=== PATIENT | male | born 1940 | race Caucasian/White ===

== ENCOUNTER 2022-12-19 19:46 | Observation (INO) | payer MEDICARE, SELFPAY ==
[2022-12-19] VITALS (28 sets, daily range): BP systolic 111–157; BP diastolic 74–94; PULSE 56–70; RESP 16–18; TEMP 36.6; O2SAT 96–99; BMI 23.1
--- NOTE | 2022-12-19 20:13 | CRLHL7_ITS ---
For Patients: As a result of the Cures Act, medical imaging exams and procedure reports are released immediately into your electronic medical record. You may view this report before your referring provider. If you have questions, please contact your health care provider. INDICATIONS: Code stroke. TECHNIQUE: CT head without contrast. COMPARISON: None FINDINGS: Mild generalized cerebral atrophy and ill-defined low-attenuation in the periventricular and subcortical white matter. There is no mass effect or midline shift. No hydrocephalus. No CT evidence of acute hemorrhage or infarction. No abnormal extra-axial fluid collection. No acute or suspicious osseous abnormality. Paranasal sinuses and orbits as imaged are unremarkable. IMPRESSION: 1. No acute intracranial abnormality. 2. Mild generalized cerebral atrophy and changes of chronic small vessel ischemic disease. Dictated by Margarito Neumann MD @ 12/19/2022 8:46:18 PM Please note that all CT scans at this facility use dose modulation, iterative reconstruction, and/or weight-based dosing when appropriate to reduce radiation dose to as low as reasonably achievable. Dictated by: Margarito Neumann MD @ 12/19/2022 20:46:24 (Electronically Signed)
[2022-12-19 20:24] LABS: Basophils Absolute Auto 0.04 K/uL (0.00-0.30); Basophils Percent Auto 0.5 % (0.0-3.0); Eosinophils Absolute Auto 0.23 K/uL (0.00-0.50); Eosinophils Percent Auto 3.1 % (0.0-7.0); Hematocrit 44.4 % (37.0-53.0); Hemoglobin* 14.5 gm/dL (13.5-17.5); Immature Granulocytes Abs Auto 0.02 K/uL (0.00-0.30); Immature Granulocytes Pct Auto 0.3 %; Lymphocytes Absolute Auto 1.85 K/uL (0.90-2.90); Lymphocytes Percent Auto 24.6 % (20-44); Mean Corpuscular HGB Conc 33 gm/dL (32-36); Mean Corpuscular Hemoglobin 32 pg (26-34); Mean Corpuscular Volume 97 fL (80-100); Monocytes Percent Auto 13.2 % (0.0-11.0); Neutrophils Absolute Auto 4.38 K/uL (1.7-7.0); Neutrophils Percent Auto 58.3 % (42.0-72.0); Platelet Count* 239 K/uL (140-440); RDW Coefficient of Variation % 13.2 % (11.5-15.5); Red Blood Count 4.57 m/uL (4.30-5.90); White Blood Count* 7.51 K/uL (4.50-11.00)
[2022-12-19 20:27] LABS: Slide Review Reflex No
--- NOTE | 2022-12-19 20:36 | CRLHL7_ITS ---
For Patients: As a result of the Century Cures Act, medical imaging exams and procedure reports are released immediately into your electronic medical record. You may view this report before your referring provider. If you have questions, please contact your health care provider. CLINICAL HISTORY: Stroke. TECHNIQUE: CTA head with contrast bolus tracking. 3D angiographic rendering using maximum intensity projection (MIP) and images permanently archived. COMPARISON: None available. FINDINGS: The petrous, cavernous, and supraclinoid segments of the internal carotid arteries are patent. The anterior and middle cerebral arteries are patent. The anterior communicating artery is visualized and is within normal limits. The intracranial vertebral arteries, basilar trunk, and posterior cerebral arteries are patent. No intracranial proximal large vessel occlusion or flow-limiting luminal stenosis. No evidence of cerebral aneurysm. No findings to suggest an arterial-venous shunting lesion. IMPRESSION: No intracranial proximal large vessel occlusion, flow-limiting luminal stenosis, or cerebral aneurysm. Please note that all CT scans at this facility use dose modulation, iterative reconstruction, and/or weight-based dosing when appropriate to reduce radiation dose to as low as reasonably achievable. Dictated by Bryan Roach MD @ 12/20/2022 6:26:30 AM (Electronically Signed)
--- NOTE | 2022-12-19 20:36 | CRLHL7_ITS ---
For Patients: As a result of the Cures Act, medical imaging exams and procedure reports are released immediately into your electronic medical record. You may view this report before your referring provider. If you have questions, please contact your health care provider. CLINICAL HISTORY: Stroke. TECHNIQUE: CTA neck with contrast bolus tracking. 3D angiographic rendering using maximum intensity projection (MIP) and images permanently archived. COMPARISON: None available. FINDINGS: The great vessels are patent. The common carotid arteries are patent. The proximal ICAs are patent without signficant stenoses by NASCET criteria. The more distal cervical ICAs are patent. The origins of the vertebral arteries are patent. The cervical segments of the vertebral arteries are patent. IMPRESSION: Patent cervical arterial vasculature without hemodynamically significant luminal stenosis. Please note that all CT scans at this facility use dose modulation, iterative reconstruction, and/or weight-based dosing when appropriate to reduce radiation dose to as low as reasonably achievable. Dictated by Bryan Roach MD @ 12/20/2022 6:23:47 AM (Electronically Signed)
[2022-12-19 20:37] LABS: Chloride* 105 mmol/L (96-114); Potassium* 4.1 mmol/L (3.6-5.1); Sodium* 143 mmol/L (135-149)
[2022-12-19 20:39] LABS: INR 0.94 (0.91-1.10); Prothrombin Time 13.1 Seconds
[2022-12-19 20:40] LABS: Anion Gap 8 mEq/L (7-15); Carbon Dioxide* 30 mmol/L (20-32); Creatinine* 0.8 mg/dL (0.5-1.5); Est. Creatinine Clearance* 63.19; Estimated Glomerular Filt Rate 89 ml/min; Partial Thromboplastin Time* 29 Seconds (23-33)
[2022-12-19 20:41] LABS: Blood Urea Nitrogen* 23 mg/dL (7-30); Calcium* 9.1 mg/dL (8.4-10.6); Glucose* 81 mg/dL (60-115)
[2022-12-19 23:00] LABS: Troponin I* < 0.01 ng/mL (0.01-0.04)
--- NOTE | 2022-12-19 23:39 | ED.NURSE ---
patient nurse to nurse report given to Raissa JHA. patient to go to room 249
[2022-12-20] VITALS (7 sets, daily range): BP systolic 115–133; BP diastolic 74–93; PULSE 54–88; RESP 16–20; TEMP 36.4–37; O2SAT 91–98; BMI 23.2
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
--- NOTE | 2022-12-20 01:34 | MR_ITS ---
Patient: LAURIE HARDIN Facility:?[facility] Patient ID:?[id number] Site Patient ID:?[id number] Study:?MRI-Head WO-12/20/2022 1:21:25 PM Ordering Physician:Monico Final Report: INDICATION: Transient ischemic attack. TECHNIQUE: Multiplanar multisequence noncontrast MR images acquired through the brain. COMPARISON: CT brain 12/19/2022. FINDINGS: Prominence of the ventricles and sulci compatible with mild diffuse cerebral volume loss. No mass effect or midline shift. Few punctate FLAIR hyperintensities in the supratentorial white matter, typical for minimal chronic microvascular ischemic changes. No intracranial hemorrhage or pathologic extra-axial fluid collection. No diffusion restriction to suggest acute infarction. The major arterial flow voids of the skullbase are preserved. Thinning of the ocular lenses. The paranasal sinuses are well aerated. Minimal mastoid fluid bilaterally. IMPRESSION: 1. No acute infarction, mass effect, or intracranial hemorrhage. 2. Mild diffuse cerebral volume loss and minimal chronic microvascular ischemic changes. Dictated by Florin Bardales MD @ 12/20/2022 1:44:42 PM Signed by:?Florin Bardales MD @12/20/2022 1:44:42 PM (Electronic Signature)
--- NOTE | 2022-12-20 01:41 | PM.IMCN1 ---
Date of Consult Consult date: 12/20/22 Requesting Physician: Hospitalist Primary Care Provider: Eleuterio Young MD Consult Narrative Reason for consult: TIA Narrative: Ivan Cunningham is a 82 year old male with past medical history of vertigo, TIA, sleep apnea, PFO in the past who presented to the hospital as he was having right vision changes and vertigo. Patient was driving tonight around 7pm and was having vertigo sensation with some righ0 sidedt vision changes that was blurry that lasted 20 secs.. 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 In the ED, his vital signs shows blood pressure of 133/93, pulse of 66, respiration of 16, temperature of 98, satting 91% on room air. His CBC with differential showed no leukocytosis with WBC of 7.5, hemoglobin of 14.5, platelet of 239, INR of 0.94, chemistry shows sodium of 143, creatinine of 0.8, potassium of 4.1, troponin of 0.01x1, glucose of 81. CT head of the head without contrast shows no acute intracranial abnormality, mild generalized cerebral atrophy, CTA of the head and neck was stable per ED provider, official read is still pending. Per the patient, he has a history of word finding dated back in March in [facility] at that time echo noted a PFO. He followed-up with cardiology with a repeat echo but was told that his PFO is small and does not need to be closed. He is only taking asa 81mg per day per cardiology recommendation. He does have TAMERA but does not sleep with a cpap and sleeping on the side. Given concerning for possible TIA given symptoms tonight that now resolved the patient to be admitted for further evaluation and treatment. Of note, neurology was contacted recommended full dose aspirin, along with echo and MRI in the morning. Pt denied chest pain sob, n/v, abdominal pain, or changes in vision at this time. Review of Systems Status of ROS: Reports: 10 or more systems reviewed and unremarkable except as noted in History and below [facility] Medical History (Updated 12/20/22 @ 00:56 by Katalina Ramirez RN) Vertigo ?R42 - Dizziness and giddiness (ICD-10) Kidney stone ?N20.0 - Calculus of kidney (ICD-10) TIA (transient ischemic attack) ?G45.9 - Transient cerebral ischemic attack, unspecified (ICD-10) Sleep apnea ?G47.30 - Sleep apnea, unspecified (ICD-10) Spinal stenosis ?M48.00 - Spinal stenosis, site unspecified (ICD-10) Arthritis ?M19.90 - Unspecified osteoarthritis, unspecified site (ICD-10) Surgical History (Updated 12/20/22 @ 00:56 by Katalina Ramirez RN) H/O cataract extraction ?Z98.49 - Cataract extraction status, unspecified eye (ICD-10) History of removal of cyst ?Z98.890 - Other specified postprocedural states (ICD-10) Social History What is your current living situation?: I presently have a place to live Problems where you live: no known problems Problems where you live details: no problems In the past 12 months, utilities in danger of being shut off: no In the past 12 mos, have been you worried that your food would run out before you had money to buy more?: never true In the past 12 mos, the food you bought just didn't last and you didn't have money to buy more?: never true Highest level of school completed/degree received: Master's degree Smoking Status: Never smoker Second hand tobacco smoke exposure: No How often do you have a drink containing alcohol: monthly or less How often do you have six or more drinks on one occasion: Never AUDIT-C Alcohol total score: 1 Non-prescribed substance use: denies use Caffeine: Yes (Coffee Daily) How often does anyone, including family, friends and others, physically hurt you: never How often does anyone, including family, friends and others, insult or talk down to you: never How often does anyone, including family, friends and others, threaten you with harm: never How often does anyone, including family, friends and others, scream or curse at you: never service: No Meds Home Medications and Allergies Allergies Allergy/AdvReac Type Severity Reaction Status Date / Time No Known Drug Allergies Allergy Verified 12/19/22 20:00 Exam Const: Vital Signs, click to edit/add: Vital Signs - 24 hr 12/19/22 20:00 12/19/22 20:13 12/19/22 20:28 Temperature 97.8 F Pulse Rate Pulse Rate [Pulse Oximeter] Pulse Rate [Right Pulse Oximeter] 68 59 L Respiratory Rate 18 16 Blood Pressure Blood Pressure [Ri ght Arm] Blood Pressure [Ri ght Upper Arm] 133/80 146/94 H Pulse Oximetry 98 98 97 Oxygen Delivery Me thod Room Air Room Air 12/19/22 20:43 12/19/22 20:58 12/19/22 21:18 Temperature Pulse Rate 63 Pulse Rate [Pulse Oximeter] Pulse Rate [Right Pulse Oximeter] 60 64 Respiratory Rate 16 Blood Pressure 157/90 H Blood Pressure [Ri ght Arm] Blood Pressure [Ri ght Upper Arm] 138/77 Pulse Oximetry 96 99 Oxygen Delivery Me thod Room Air Room Air 12/19/22 21:19 12/19/22 21:30 12/19/22 21:32 Temperature Pulse Rate 60 69 70 Pulse Rate [Pulse Oximeter] Pulse Rate [Right Pulse Oximeter] Respiratory Rate Blood Pressure 127/86 Blood Pressure [Ri ght Arm] Blood Pressure [Ri ght Upper Arm] Pulse Oximetry 98 97 98 Oxygen Delivery Me thod 12/19/22 21:45 12/19/22 21:48 12/19/22 21:58 Temperature Pulse Rate 59 L 68 Pulse Rate [Pulse Oximeter] Pulse Rate [Right Pulse Oximeter] 68 Respiratory Rate 16 Blood Pressure 132/76 Blood Pressure [Ri ght Arm] Blood Pressure [Ri ght Upper Arm] 126/77 Pulse Oximetry 97 97 98 Oxygen Delivery Me thod Room Air 12/19/22 22:00 12/19/22 22:00 12/19/22 22:02 Temperature Pulse Rate 67 63 Pulse Rate [Pulse Oximeter] Pulse Rate [Right Pulse Oximeter] 68 Respiratory Rate 16 Blood Pressure 126/77 Blood Pressure [Ri ght Arm] Blood Pressure [Ri ght Upper Arm] 126/77 Pulse Oximetry 98 98 98 Oxygen Delivery Me thod 12/19/22 22:15 12/19/22 22:17 12/19/22 22:30 Temperature Pulse Rate 62 70 65 Pulse Rate [Pulse Oximeter] Pulse Rate [Right Pulse Oximeter] Respiratory Rate Blood Pressure 119/75 Blood Pressure [Ri ght Arm] Blood Pressure [Ri ght Upper Arm] Pulse Oximetry 98 97 98 Oxygen Delivery Me thod 12/19/22 22:32 12/19/22 22:34 12/19/22 22:45 Temperature Pulse Rate 68 60 63 Pulse Rate [Pulse Oximeter] Pulse Rate [Right Pulse Oximeter] Respiratory Rate Blood Pressure 142/90 H Blood Pressure [Ri ght Arm] Blood Pressure [Ri ght Upper Arm] Pulse Oximetry 97 96 97 Oxygen Delivery Me thod 12/19/22 22:50 12/19/22 23:00 12/19/22 23:00 Temperature Pulse Rate 69 Pulse Rate [Pulse Oximeter] Pulse Rate [Right Pulse Oximeter] 65 Respiratory Rate 16 Blood Pressure 124/74 Blood Pressure [Ri ght Arm] Blood Pressure [Ri ght Upper Arm] 126/79 Pulse Oximetry 98 98 Oxygen Delivery Me thod Room Air 12/19/22 23:05 12/19/22 23:06 12/19/22 23:15 Temperature Pulse Rate 67 68 56 L Pulse Rate [Pulse Oximeter] Pulse Rate [Right Pulse Oximeter] Respiratory Rate Blood Pressure Blood Pressure [Ri ght Arm] Blood Pressure [Ri ght Upper Arm] Pulse Oximetry 97 97 97 Oxygen Delivery Me thod 12/19/22 23:19 12/19/22 23:30 12/19/22 23:45 Temperature Pulse Rate 59 L 68 68 Pulse Rate [Pulse Oximeter] Pulse Rate [Right Pulse Oximeter] Respiratory Rate Blood Pressure 111/75 Blood Pressure [Ri ght Arm] Blood Pressure [Ri ght Upper Arm] Pulse Oximetry 97 96 97 Oxygen Delivery Me thod 12/20/22 00:15 Temperature 98.0 F Pulse Rate Pulse Rate [Pulse Oximeter] 66 Pulse Rate [Right Pulse Oximeter] Respiratory Rate 16 Blood Pressure Blood Pressure [Ri ght Arm] 133/93 H Blood Pressure [Ri ght Upper Arm] Pulse Oximetry 91 Oxygen Delivery Me thod Room Air Other: Exam (performed via interactive video with assistance of bedside nurse): General: [alert, cooperative, no acute distress] HEENT: [Pupils reported ERRL] [, oral mucosa pink and moist without erythema] Lungs: [clear to auscultation bilaterally without crackle or wheeze] CV: [regular rate and rhythm without loud murmur rub or gallop] Abd: [bowel sounds present, denies tenderness and does not exhibit signs of pain with palpation done by bedside nurse] Ext: [no pitting edema noted] Skin: [no rashes, bruises or lesions appreciated on gross visualization of exposed skin] Neuro: [alert, oriented x 3. CN III -VII, XI, XII grossly intact, moves all extremities without any significant focal deficit appreciated by nurse] Labs Labs: Short CBC 12/19/22 Range/Units 20:10 WBC 7.51 (4.50-11.00) K/uL Hgb 14.5 (13.5-17.5) gm/dL Hct 44.4 (37.0-53.0) % Plt Count 239 (140-440) K/uL BMP 12/19/22 20:10 Sodium 143 Potassium 4.1 Chloride 105 Carbon Dioxide 30 BUN 23 Creatinine 0.8 Glucose 81 Calcium 9.1 Cardiac Enzymes 12/19/22 Range/Units 20:13 Troponin I < 0.01 L (0.01-0.04) ng/mL Assessment and Plan Assessment and plan (1) Brain TIA: Status: Acute Plan # Possible TIA # hx of PFO # TAMERA not using CPAP - His CT head without contrast and CTA of the head in the ED was stable. 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 -He has agreed to having an MRI and echo along with a cholesterol level repeated in the morning -Further recommendation per results -Allow for permissive hypertension though his blood pressure is currently stable at this time CODE STATUS is DNI DNR this was discussed with the patient
--- NOTE | 2022-12-20 03:59 | PC.NURSE ---
PATIENT PLEASANT AND COOPERATIVE, ALERT AND ORIENTED, UP IND WITH STEADY GAIT NO ASSISTIVE DEVICES NEEDED, DECLINING PAIN.
[2022-12-20 08:06] LABS: Cholesterol* 174 mg/dL (90-199); HDL Cholesterol* 39 mg/dL (>=40); LDL Cholesterol Calculated 120 mg/dL (<100); Triglycerides* 75 mg/dL (40-149)
[2022-12-20 08:22] LABS: Troponin I* < 0.01 ng/mL (0.01-0.04)
[2022-12-20] MEDS: ASPIRIN 81 MG TAB.CHEW PO (09:35)
--- NOTE | 2022-12-20 15:28 | P.DS_ITS ---
DS: Providers Provider Date Seen: 12/20/22 Date of admission: 12/19/22 23:39 Primary care physician: Eleuterio Young MD Admitting Clinician: Georgina De Los Santos MD Attending Physician on discharge: Georgina De Los Santos MD Date of Discharge: 12/20/22 DS: Diagnosis Discharge Diagnosis (1) Brain TIA: Status: Acute Problem details: - presumed given vision symptoms prior to ED visit - reassuring brain MRI - TTE 12/20 with results below: Final Impressions: 1. 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 2. Moderate aortic regurgitation. Trileaflet aortic valve. 3. LVEF estimate 60-65%. Normal LV size and wall thickness. 4. Iytw-rx-dglpqmvl tricuspid regurgitation. 5. Normal RV size and global systolic function. 6. Moderate biatrial enlargement. 7. Normal PA systolic and RA pressure estimates. 8. Mildly dilated aortic root [4.2 cm] and ascending aorta [3.9 cm]. DS: Summary Hospital Course Hospital Course: Patient is an 82-year-old male who presented to the emergency room on 12/19 for acute onset of vision changes, concerning for CVA. Stroke code was called upon arrival and head and neck CT/CTA in the emergency room were within normal limits. Patient's symptoms resolved spontaneously, MRI and TTE performed on hospital day 1, results above. He was seen by Dr. Nelson of stroke neurology via tele visit prior to discharge. She recommends continued baby aspirin, restarting statin (patient pre contemplative giving previous side effects, will discuss with PCP), outpatient neurology follow-up to discuss any further workup (ie EEG) and outpatient Cardiology follow-up to discuss TTE findings. Patient medically appropriate for discharge on 12/17. Status at Discharge Functional status at discharge: independent ambulation Overall status at discharge: patient is back to baseline Time Spent with Patient Time attestation: Total time spent providing and/or coordinating discharge services: Time spent: Less than 30 minutes Exam Narrative: Exam Narrative: See Neuro visit from 12/20, no formal exam performed upon d/c Const: Vital Signs, click to edit/add: Vital Signs - 24 hr 12/19/22 20:00 12/19/22 20:13 12/19/22 20:28 Temperature 97.8 F Pulse Rate Pulse Rate [Pulse Oximeter] Pulse Rate [Right Pulse Oximeter] 68 59 L Respiratory Rate 18 16 Blood Pressure Blood Pressure [Ri ght Arm] Blood Pressure [Ri ght Upper Arm] 133/80 146/94 H Pulse Oximetry 98 98 97 Oxygen Delivery Me thod Room Air Room Air 12/19/22 20:43 12/19/22 20:58 12/19/22 21:18 Temperature Pulse Rate 63 Pulse Rate [Pulse Oximeter] Pulse Rate [Right Pulse Oximeter] 60 64 Respiratory Rate 16 Blood Pressure 157/90 H Blood Pressure [Ri ght Arm] Blood Pressure [Ri ght Upper Arm] 138/77 Pulse Oximetry 96 99 Oxygen Delivery Me thod Room Air Room Air 12/19/22 21:19 12/19/22 21:30 12/19/22 21:32 Temperature Pulse Rate 60 69 70 Pulse Rate [Pulse Oximeter] Pulse Rate [Right Pulse Oximeter] Respiratory Rate Blood Pressure 127/86 Blood Pressure [Ri ght Arm] Blood Pressure [Ri ght Upper Arm] Pulse Oximetry 98 97 98 Oxygen Delivery Me thod 12/19/22 21:45 12/19/22 21:48 12/19/22 21:58 Temperature Pulse Rate 59 L 68 Pulse Rate [Pulse Oximeter] Pulse Rate [Right Pulse Oximeter] 68 Respiratory Rate 16 Blood Pressure 132/76 Blood Pressure [Ri ght Arm] Blood Pressure [Ri ght Upper Arm] 126/77 Pulse Oximetry 97 97 98 Oxygen Delivery Oh thod Room Air 12/19/22 22:00 12/19/22 22:00 12/19/22 22:02 Temperature Pulse Rate 67 63 Pulse Rate [Pulse Oximeter] Pulse Rate [Right Pulse Oximeter] 68 Respiratory Rate 16 Blood Pressure 126/77 Blood Pressure [Ri ght Arm] Blood Pressure [Ri ght Upper Arm] 126/77 Pulse Oximetry 98 98 98 Oxygen Delivery Me thod 12/19/22 22:15 12/19/22 22:17 12/19/22 22:30 Temperature Pulse Rate 62 70 65 Pulse Rate [Pulse Oximeter] Pulse Rate [Right Pulse Oximeter] Respiratory Rate Blood Pressure 119/75 Blood Pressure [Ri ght Arm] Blood Pressure [Ri ght Upper Arm] Pulse Oximetry 98 97 98 Oxygen Delivery Me thod 12/19/22 22:32 12/19/22 22:34 12/19/22 22:45 Temperature Pulse Rate 68 60 63 Pulse Rate [Pulse Oximeter] Pulse Rate [Right Pulse Oximeter] Respiratory Rate Blood Pressure 142/90 H Blood Pressure [Ri ght Arm] Blood Pressure [Ri ght Upper Arm] Pulse Oximetry 97 96 97 Oxygen Delivery Me thod 12/19/22 22:50 12/19/22 23:00 12/19/22 23:00 Temperature Pulse Rate 69 Pulse Rate [Pulse Oximeter] Pulse Rate [Right Pulse Oximeter] 65 Respiratory Rate 16 Blood Pressure 124/74 Blood Pressure [Ri ght Arm] Blood Pressure [Ri ght Upper Arm] 126/79 Pulse Oximetry 98 98 Oxygen Delivery Me thod Room Air 12/19/22 23:05 12/19/22 23:06 12/19/22 23:15 Temperature Pulse Rate 67 68 56 L Pulse Rate [Pulse Oximeter] Pulse Rate [Right Pulse Oximeter] Respiratory Rate Blood Pressure Blood Pressure [Ri ght Arm] Blood Pressure [Ri ght Upper Arm] Pulse Oximetry 97 97 97 Oxygen Delivery Me thod 12/19/22 23:19 12/19/22 23:30 12/19/22 23:45 Temperature Pulse Rate 59 L 68 68 Pulse Rate [Pulse Oximeter] Pulse Rate [Right Pulse Oximeter] Respiratory Rate Blood Pressure 111/75 Blood Pressure [Ri ght Arm] Blood Pressure [Ri ght Upper Arm] Pulse Oximetry 97 96 97 Oxygen Delivery Me thod 12/20/22 00:15 12/20/22 03:40 12/20/22 03:40 Temperature 98.0 F 98.0 F 98.0 F Pulse Rate 56 L Pulse Rate [Pulse Oximeter] 66 56 L 56 L Pulse Rate [Right Pulse Oximeter] Respiratory Rate 16 16 16 Blood Pressure 131/75 Blood Pressure [Ri ght Arm] 133/93 H 131/75 131/75 Blood Pressure [Ri ght Upper Arm] Pulse Oximetry 91 91 98 Oxygen Delivery Me thod Room Air Room Air Room Air 12/20/22 08:00 12/20/22 12:00 Temperature 98.6 F 97.5 F L Pulse Rate Pulse Rate [Pulse Oximeter] 88 54 L Pulse Rate [Right Pulse Oximeter] Respiratory Rate 20 16 Blood Pressure Blood Pressure [Ri ght Arm] 116/91 H 122/79 Blood Pressure [Ri ght Upper Arm] Pulse Oximetry 94 98 Oxygen Delivery Me thod Room Air Room Air DS: Data Data Completed and Pending Completed studies during hospitalization: TECHNIQUE: Multiplanar multisequence noncontrast MR images acquired through the brain. COMPARISON: CT brain 12/19/2022. FINDINGS: Prominence of the ventricles and sulci compatible with mild diffuse cerebral volume loss. No mass effect or midline shift. Few punctate FLAIR hyperintensities in the supratentorial white matter, typical for minimal chronic microvascular ischemic changes. No intracranial hemorrhage or pathologic extra-axial fluid collection. No diffusion restriction to suggest acute infarction. The major arterial flow voids of the skullbase are preserved. Thinning of the ocular lenses. The paranasal sinuses are well aerated. Minimal mastoid fluid bilaterally. IMPRESSION: 1. No acute infarction, mass effect, or intracranial hemorrhage. 2. Mild diffuse cerebral volume loss and minimal chronic microvascular ischemic changes. TTE Final Impressions: 1. 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 2. Moderate aortic regurgitation. Trileaflet aortic valve. 3. LVEF estimate 60-65%. Normal LV size and wall thickness. 4. Rpqw-rb-ctmuygxf tricuspid regurgitation. 5. Normal RV size and global systolic function. 6. Moderate biatrial enlargement. 7. Normal PA systolic and RA pressure estimates. 8. Mildly dilated aortic root [4.2 cm] and ascending aorta [3.9 cm]. Pending studies at discharge: A1C Labs on day of discharge: Labs from last 24 hours 12/20/22 12/19/22 12/19/22 07:15 20:13 20:10 WBC 7.51 RBC 4.57 Hgb 14.5 Hct 44.4 MCV 97 MCH 32 MCHC 33 RDW Coeff of Santhosh 13.2 Plt Count 239 Neut % (Auto) 58.3 Lymph % (Auto) 24.6 [place] % (Auto) 13.2 H Eos % (Auto) 3.1 Baso % (Auto) 0.5 Neut # (Auto) 4.38 Lymph # (Auto) 1.85 [place] # (Auto) 1.00 H Eos # (Auto) 0.23 Baso # (Auto) 0.04 Abs Immat Gran (auto) 0.02 Imm/Tot Granulo (auto) 0.3 INR 0.94 APTT 29 Sodium 143 Potassium 4.1 Chloride 105 Carbon Dioxide 30 Anion Gap 8 BUN 23 Creatinine 0.8 Estimated Creat Clear 63.19 Estimated GFR 89 Glucose 81 Calcium 9.1 Troponin I < 0.01 L < 0.01 L Triglycerides 75 Cholesterol 174 LDL Cholesterol, Calc 120 H HDL Cholesterol 39 L Discharge Plan Discharge Disposition: Home, Self-Care Date of Admission: 12/19/22 23:39 Attending Provider on Discharge: Georgina De Los Santos Primary Care Provider: Eleuterio Young Condition: Improved Anticipated Discharge Date/Time: 12/20/22 14:20 Discharge Medications: New aspirin [Children's Aspirin] 81 mg Tablet,Chewable 81 mg PO DAILY Qty: 30 0RF Continued melatonin 3 mg tablet 3 mg PO HS PRN acetaminophen [Tylenol Extra Strength] 500 mg tablet 500 - 1,000 mg PO Q6H PRN cholecalciferol (vitamin D3) 25 mcg (1,000 unit) capsule 25 mcg PO DAILY Discontinued aspirin [Adult Aspirin Regimen] 81 mg tablet,delayed release (DR/EC) 81 mg PO DAILY Discharge Orders: Discharge Order (Routine); Ordered 12/20/22 Ordered By: Georgina De Los Santos Additional Instructions: See Dr. Young as scheduled for a hospital f/u - he can help arrange followup with both Neurology and Cardiology to discuss symptoms and plan of care going forward. Stay on 81mg of ASA daily. Activity Level: Activity as Tolerated Discharge Diet: Regular and Heart Healthy (2 gm sodium, low fat) Follow Up Appointments: Eleuterio Young MD [Primary Care Provider] - (see Dr Young at [facility] within 7-10 days for hospital d/c followup) Forms: [employer] Info Instructions
--- NOTE | 2022-12-20 15:46 | PC.NURSE ---
Tele indicaates Sinus arrhythmia with first degree HB and borderline BBB. MRI screening completed by Primary RN. MRI of brain completed, echocardiogram completed and video neurology consult completed. Pt UAL, adequate I and O. Nilo coma scores were both 15. Walking in hallway. Report to [facility] for evening shift. Orders for d/c to home in process at thid time.
[2022-12-20 16:10] LABS: Hemoglobin A1C* 5.64 % (0-5.6)
--- NOTE | 2022-12-20 16:57 | REH.OT ---
OT/PT: In rounds, MD provided verbal order for OT/PT. Per PT, when eval attempted, Dr. Gilliam reports symptoms resolved, no need for OT/PT eval and Cx orders.
--- NOTE | 2022-12-20 17:20 | PC.NURSE ---
Discharge Note: Pt friendly and cooperative. Independent, no stroke like symptoms observed. VS WNL. Denies pain. Pt was discharged to home independently at 1635, picked up by a friend. He verbalized understanding of discharge instructions and follow up appointments.
== END 2022-12-20 17:22 | disposition home or self-care (01) ==
LOC: ED 23:10 → MEDSURG 23:40
PROVIDERS: Hospitalist; Admitting Provider Family Medicine; Emergency Provider Emergency Medicine; PCP Family Medicine; Visit Provider Family Medicine
DX: G45.9 Transient cerebral ischemic attack, unspecified (principal); R29.818 Other symptoms and signs involving the nervous system; H53.8 Other visual disturbances; I08.3 Combined rheumatic disorders of mitral, aortic and tricuspid valves; G47.33 Obstructive sleep apnea (adult) (pediatric); R42 Dizziness and giddiness; Z98.49 Cataract extraction status, unspecified eye; Z98.890 Other specified postprocedural states; R26.81 Unsteadiness on feet; Z66 Do not resuscitate
CPT/HCPCS: 36415; 70450; 70496; 70498; 70551; 80048; 80061; 83036; 84484; 85025; 85610; 85730; 92610; 93005; 93306; 94761; 99283; 99285; A9270; G0378; Q9967

== ENCOUNTER 2023-01-19 10:37 | Outpatient (CLI) | payer MEDICARE, SELFPAY ==
[2023-01-19 10:53] VITALS: BP 124/77; PULSE 62; RESP 16; O2SAT 99
[2023-01-19] MEDS: TETRACAINE 0.5% OPHTH 1 DROP EYE-LEFT (11:10)
[2023-01-19] MEDS: BRIMONIDINE TARTRATE 0.2% OPHTH 1 DROP EYE-LEFT (11:15)
--- NOTE | 2023-01-19 12:02 | P.OPTPRC_ITS ---
Procedure Note Date of procedure: 01/19/23 Will [facility] bill your pro fee for this procedure?: Yes Procedure Description: SURGEON: Ashley Buckner MD PREOPERATIVE DIAGNOSIS: Posterior capsular opacity, left eye POSTOPERATIVE DIAGNOSIS: Posterior capsular opacity, left eye PROCEDURE: YAG laser capsulotomy, left eye ANESTHESIA: Topical. ESTIMATED BLOOD LOSS: None PATHOLOGY SPECIMEN: None COMPLICATIONS: None INDICATIONS: See consult note for details. The risks, benefits and alternatives of the procedure were explained to the patient, who elected to proceed and signed informed consent to do so. PROCEDURE: The patient was brought to the pre-holding area where the left eye was identified as the operative eye. I placed my initials above this eye. The patient received 2 sets of 1 drop of 0.5% tetracaine and 1 drop of 1% tropicamide. They also received 1 drop of 0.2% brimonidine. They received 1 drop of 0.5% tetracaine immediately prior to bringing them back for the procedure. The patient was then brought to the procedure room where the left eye was again identified as the operative eye. A YAG Clay capsulotomy lens was placed on the eye. The laser was administered using a total number of 11 shots with an energy of 2.4 mJ per shot for a total energy of 26 mJ. The patient tolerated the procedure well. DISPOSITION: The patient was taken back to the pre-holding area and given 1 drop of 0.2% brimonidine in the left eye. They were discharged to home in stable condition. The patient was instructed to call me or go to the emergency department with any sudden change, including dramatic loss of vision, severe pain in the eye or eyebrow region, nausea, or vomiting. The patient was instructed to use the 0.2% brimonidine 1 drop 2 times a day in the left eye for 1 week. The patient will follow up in the clinic in 1-2 weeks
== END 2023-01-19 11:16 | disposition home or self-care (01) ==
LOC: EYE PRC 10:38
PROVIDERS: PCP Family Medicine; Visit Provider Ophthalmology
DX: H26.9 Unspecified cataract (principal)
CPT/HCPCS: 66821

== ENCOUNTER 2023-01-24 15:50 | Outpatient (RCR) | payer SELFPAY | END 2023-06-09 15:05 | disposition home or self-care (01) | LOC: MOW 15:50 | PROVIDERS: PCP Family Medicine; Visit Provider Family Medicine | DX: Z76.0 Encounter for issue of repeat prescription (principal) | CPT/HCPCS: S5170 ==

== ENCOUNTER 2024-05-17 15:15 | Outpatient (RCR) | payer MEDICARE, SELFPAY | END 2024-05-18 14:09 | disposition home or self-care (01) | PROVIDERS: PCP Family Medicine; Visit Provider Family Medicine | DX: M79.604 Pain in right leg (principal); M79.605 Pain in left leg; M51.362 Other intervertebral disc degeneration, lumbar region with discogenic back pain and lower extremity pain; Z51.89 Encounter for other specified aftercare | CPT/HCPCS: 97110; 97162 ==

== ENCOUNTER 2024-12-29 08:45 | Emergency (ER) | payer MEDICARE, SELFPAY ==
--- OUTSIDE RECORDS SUMMARY | 2024-12-29 08:47 | XMS_ITS | Clinical Summary ---
Author Organization [facility] [employer] [facility] Address [address] [place] [address] Care Team Providers Care Table Hand Name Role Phone Eleuterio Young MD Primary Care Provider Allergies Active Allergy Reactions Criticality Noted Date Comments Nabumetone Dizziness 08/18/2009 Naproxen GI Bleeding 02/23/2011 Bleeding if taken in high doses Cevgjvr-Kjj-Zfy Reductase Inhibitors Other - Describe In Comment Field 07/05/2017 POSSIBLE cause of muscle pain Tetracycline GI Upset 08/18/2009 Medications * This document contains information received from the source organization and may not represent a complete record from that organization. multivitamin (MVI) tablet Take 1 tablet by mouth once daily. Active cholecalciferol (VITAMIN D3) 1,000 unit tabletIndication s:Vitamin D deficiency Taking 1,000 Units during summer and 2,000 Units in the winter. 180 tablet 7 Active melatonin 3 mg tablet Take 1 Tablet by mouth at bedtime. Per pt 0 1 Active acetaminophen (TYLENOL EXTRA STRGTH) 500 mg tablet Take 1 Tablet (500 mg) by mouth every 4 hours if needed. 0 1 Active triamcinolone 0.1 % ointmentIndicati ons:Rash Apply topically to affected area(s) three times daily. As needed, not to exceed 10 days per episode. 15 g 1 4 Active clopidogreL (PLAVIX) 75 mg tabletIndication s:TIA (transient ischemic attack) TAKE 1 TABLET BY MOUTH ONCE DAILY. 90 Tablet 3 5 Active COLLAGEN MISC As directed. Act linda vit A/vit C/vit E/zinc/copper (PRESERVISION AREDS ORAL) Take by mouth. Act linda ketoconazole 2 % creamIndications :Rash Twice daily as needed to affected areas. 30 g 3 5 Active sildenafil citrate (VIAGRA) 50 mg tabletIndication s:Erectile dysfunction, unspecified erectile dysfunction type Take 0.5-1 Tablets (25-50 mg) by mouth once daily if needed for Erectile Dysfunction. Take 30 minutes to 4 hours before sexual activity. Max 100mg/24hr. 10 Tablet 3 5 Active valACYclovir (Valtrex) 1 gram tabletIndication s:Varicella zoster Take 1 Tablet (1 g) by mouth three times daily for 7 days. 21 Tablet 5 12/29/19 25 Active Problems Problem Noted Date Diagnosed Date Disease of spinal cord 08/23/2024 Paroxysmal tachycardia 08/23/2024 PSVT (paroxysmal supraventricular tachycardia) 1 05/27/2022 MVP (mitral valve prolapse) 03/26/2023 TIA (transient ischemic chano ck) 05/05/2022 in [place]. Neg hosp eval. 08/20/2022 Chronic insomnia 07/29/2020 Moderate aortic insufficiency 12/11/2019 Moderate tricuspid insufficiency 12/11/2019 Ascending aortic aneurysm 12/11/2019 Benign prostatic hyperplasia with incomplete bladder emptying 07/16/2019 Hyperlipidemia, unspecified 06/29/2016 Prediabetes 06/29/2016 Stenosis of right carotid artery 06/29/2016 Sensorineural hearing loss of both ears 01/25/20 15 Lumbar radicular pain 05/15/2014 Parasomnia 05/14/2014 TAMERA 05/03/2014 AHI-9, 42 supine 05/14/2014 Cervical spinal stenosis with myelomalacia Overview (08/18/2009): MRI Urolithiasis Overview (08/18/2009): calcium oxylate Resolved Problems Problem Noted Date Diagnosed Date Resolved Date Moderate mitral insufficiency 12/11/2019 03/26/2023 DDD (degenerative disc disease), lumbar 05/15/2014 06/29/2016 Tingling 02/19/2009 06/29/2016 Spinal stenosis in cervical region 02/19/2009 04/30/2014 BPH (benign prostatic hyperplasia) 08/20/2022 Hyperlipidemia LDL goal < 160 04/30/2014 Encounters Date Type Department Care Team Description 12/21/2024 11:30 AM CDT Office Visit [facility] [address] [place] [address] Trish Carranza MD Derm Problem 12/20/2024 Travel 12/17/2024 Telephone [facility] [address] [place] [address] Trish Carranza MD skin issue (skin concerns) 11/15/2024 10:45 AM CDT Orders Only [facility] [address] [place] [address] Lab, [facility] 11/15/2024 Travel 11/12/2024 Travel from Last 3 Months Immunizations Immunization Administration Dates Next Due AMB Influenza, IIV4 PF (=>6 mos Flulaval,Fluzone Fluarix)(Flu Clinic Only) 01/30/2019 Amb Influenza, Inactivated A IIV4 (Age 65+ Years) Preserv Free 01/21/2020 COVID-19 VACCINE SPIKEVAX (M ODERNA 50MCG/0.5ML) 12YO+ PFS 02/01/2024,07/14/2023,01/20/2023 COVID-19 vaccine (Moderna 100mcg/0.5mL) PF, MDV 07/23/2021 COVID-19 vaccine (Pfizer-Bio NTech 30mcg/0.3mL) PF, MDV 12/21/2020,06/20/2020,05/30/2020 Hepatitis A (Adult) 08/23/1997 INFLUENZA, IIV3 PF (AGE >= 6 MO) 01/28/2014 Influenza Virus, Unspecified 02/03/2021, 01/21/2020,01/31/2017,02/04,01/28/2014,01/24/2013,02/01/2012 ,02/12/2010,02/17/2006,02/15/2005 Influenza, High-dose Inactivated 02/06/2024,05/2012 Influenza, High-dose Quadriv alent Inactivated 01/28/2022 Influenza, IIV3 (Age >=3 years) 01/29/20 14,02/09/2008,01/30/2007,02/17,02/15/2005,02/15/2003,02/20/2002 ,02/16/2001,02/23/2000,02/03/1999 Influenza, IIV4 02/14/2018,02/04/2016,01/28/2015 Influenza, Inactivated AIIV4 (Age 65+ Years) Preserv Free 01/25/2023,02/03/2021 Influenza,CCIIV4 PRESERV FREE 01/31/2017 Pneumococcal Conj 20-valent (Prevnar 20) 08/20/2022 Pneumococcal Poly,23-Valent (Pneumovax) 01/30/2007 Pneumococcal conj 13-Valent (Prevnar 13) 01/03/2015 RSV, Recombinant ADJ Reconst ituted (Arexvy 120MCG/0.5mL) 02/17/2023 Td (Age >=7 Years) 03/13/1999 Td, Preservative Free (age >= 7 Years) 9 Tdap 09/01/2021,06/08/2012 Typhoid (injectable) 03/13/1999 Zoster (Shingrix-RZV, recombinant) 01/04/2018, Zoster (Zostavax-ZVL, live) 04/05/2006 Family History Medical History Relation Name Comments Cancer-prostate Father at 101 Cancer-breast Maternal Grandmother Hypertension Maternal Grandmother Cancer-breast Mother at 102 na tural Dementia Mother Hypertension Mother Osteoporosis Mother Psychiatric illness Mother Depressi on Cancer-colon Neg. Anesthesia Problem No Family History Relation Name Status Comments Brother Alive x 4 Child Alive x 2 Father (Age 101) Maternal Grandmother Mother Alive Born 1913 Neg. Sister Alive x1 Social History Tobacco Use Types Packs/Day Years Used Date Smoking Tobacco: Never Smokeless Tobacco: Never Tobacco Cessation:Counseling Given: No Alcohol Use Standard Drinks/Week Comments Yes 1 (1 standard drink = 0.6 oz pur e alcohol) occasional PHQ-2 Answer Date Recorded PHQ-2 TOTAL SCORE 1 08/23/2024 Social Connections Answer Date Recorded Do you often feel lonely or isolated from those around you? 0 08/23/2024 Financial Resource Strain Answer Date R ecorded Difficulty of Paying Living Expenses 3 08/23/2024 Difficulty of Paying Living Expenses Not on file 08/23/2024 Food Insecurity Answer Date Recorded Do you worry your food will run out before you are able to buy more? 1 08/23/2024 Transportation Needs Answer Date Record ed Does lack of transportation keep you from medica l appointments? 1 08/23/2024 Does lack of transportation keep you from work, meetings or getting things that you need? 1 08/23/2024 Housing Stability Answer Date Recorded What is your housing situation today? 1 08/23/2024 Utilities Answer Date Recorded Do you have trouble paying f or utilities (for example, heat, electricity, water, phone)? 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 Not on file Not on file Not on file Retired Not on file Not on file Not on file Obstetrics History Last Filed Vital Signs Vital Sign Reading Time Taken Comments Blood Pressure 113/69 08/23/2024 10:37 AM CDT Pulse 71 08/23/2024 10:37 AM CDT Temperature 36.1 C (97 F) 03/25/2023 2:33 PM MEDICAL TECHNICIAN Respiratory Rate 16 03/25/2023 2:33 PM MEDICAL TECHNICIAN Oxygen Saturation 97% 08/23/2024 10:37 AM CDT Inhaled Oxygen Concentration - - Weight 78.7 kg (173 lb 6.4 oz) 08/23/2024 10:37 AM CDT Height 181.6 cm (5' 11.5) 08/23/2024 10:37 AM C DT Body Mass Index 23.85 08/23/2024 10:37 AM CDT Plan of Treatment Upcoming Encounters Date Type Department Care Team (Late st Contact Info) Description 04/02/2025 11:00 AM MEDICAL TECHNICIAN Orders Only [address] [place] [address] 04/02/2025 1:00 PM MEDICAL TECHNICIAN Office Visit [address] [place] [address] Kate Almeida MD [facility] [facility] [address] 08/13/2025 11:00 AM CDT Office Visit [facility] [address] [facility] [address] [place], [place] [id number] Trish Carranza MD [address] [facility] [address] [place], [place] [address] Health Maintenance Due Date Last Done Comments Influenza Vaccine (#1) 2024 , 01/25/2023, 02/03/2021, Additional history exists BMI (ht and wt on same day) for age 18+ 08/23/2025 08/23/2024, 12/29/2023, 12/07/2023, Additional history exists Depression screening for age 12+ 08/23/2025 08/23/2024 Medicare Wellness for age 65+ 08/24/2025 08/23/2024, 08/16/2023, 08/20/2022, Additional history exists Tetanus booster 09/02/2031 09/01/2021, 05/26, 11/11/2008, Additional history exists Zoster (shingles) series for age 50+ Completed 01/04/2018, 07/07/2017, 04/05/2006 Pneumococcal series for age 50+ Completed 08/20/2022, 01/03/2015, 01/30/2007 RSV vaccine for adults or Completed 02/17/2023 COVID-19 vaccine series Completed 08/16/19, 02/01/2024, 07/14/2023, Additional history exists Hepatitis B series for 19+ Aged Out N o longer eligible based on patient's age to complete this topic Procedures Procedure Name Priority Date/Time Associated Diagnosis Comments VITAMIN B12 Routine 11/15/2024 10:56 AM CDT B12 deficiency from Last 3 Months Results * VITAMIN B12 (11/15/2024 10:56 AM CDT) VITAMIN B12 533 200 - 1,100 pg/mL [employer] Blood BLOOD SPECIMEN / Unknown 11/15/2024 10:56 AM CDT 11/15/2024 10:57 AM CDT Eleuterio Young MD CHEMISTRY Final Result Film [facility] [address] [place] [address], [facility] [address] [place] [address] from Last 3 Months Insurance MEDICARE PB ONLY AAR PB ONLY MEDICARE PART B HB ONLY MEDICARE PART A HB ONLY AARP HB ONLY MEDICARE PB ONLY MEDICARE PROVIDER BASED [facility] Member Subscriber Plan / Payer ( fective 2012-Present) Name:Ivan Cunningham Relation to Subscriber:Self Name:Ivan Cunningham Payer ID:Not on file Group ID:Not on file Type:Not on file Address: [facility] [id number] [place] [phone] [facility] MEDICARE PROVIDER BASED Care Teams Table Hand Relationship Specialty Start Date End Date Eleuterio Young MD [address] [place] [address] PCP - General Family Practice 04/30/14
--- OUTSIDE RECORDS SUMMARY | 2024-12-29 08:47 | XMS_ITS | Clinical Summary ---
Author Organization [employer] Address [address] [place] [address] Care Team Providers Care Automotive Product Engineer Name Role Phone Unavailable Primary Care Provider Unavailabl e Source Comments You are receiving this document as you are listed as the primary care provider,follow-up provider, or the patient has been referred to you for consultation.This is in compliance with the Medicare and[facility] EHR Incentive Program,which states Providers who transition their patient to another setting of careor provider of care or refers their patient to another provider of care shouldprovide summary care record for each transition of care or referral. [employer] Allergies Active Allergy Reactions Criticality Noted Date Comments Nabumetone Dizziness 09/07/2011 Naproxen Other, see comments 10/25/2011 GI Bleeding. Tetracycline Gastrointestinal 09/07/2011 Medications Multiple Vitamins-Minera ls (MULTIVITAL OR) Take by mouth daily. Active omega-3 fatty acids (FISH OIL) 1000 MG capsule Take 2 g by mouth daily. Active hydrocortisone valerate (WESTCORT) 0.2 % ointment Apply topically two times a day. Apply daily Active ibuprofen (AKA MOTRIN) 200 MG tablet Take 200-400 mg by mouth every 4 hours as needed. As needed Active ketoconazole (AKA NIZORAL) 2 % cream Apply topically daily. Active acetaminophen (ACETAMIN) 500 MG tablet Take 2 Tabs by mouth daily at bedtime. 3 Active Active Problems Problem Noted Date Diagnosed Date BPPV (benign paroxysmal positional vertigo) 06/23 Urolithiasis Overview (09/10/2011): calcium oxylate Hyperlipemia Overview (01/24/2013): Goal <160 BPH (benign prostatic hyperplasia) Overview (01/24/2013): With urinary retention. PVR 700 04/2012. status post HOLAP 05/07, with good response, off meds Cervical spinal stenosis Overview (01/24/2013): MRI 2009 Hyperlipidemia with target LDL less than 160 Overview (01/01/2015): ICD 10 Resolved Problems Problem Noted Date Diagnosed Date Resolved Date Other symptoms involving ner vous and musculoskeletal systems(781.99) 2012 01/25/20 13 Immunizations Immunization Administration Dates Next Due Flu Vac (3+ yrs) 02/09/2008, 7,02/15/2005,2002,02/20/2002,02/16/2001,02/23/2000,1 HepA Adult (19+ yrs) 08/23/1997 Influenza IIV3 (Trivalent) F luzone Highdose, 65+ Yrs ([address]) 01/24/2013 Influenza, Unspecified Formulation 02/01/2012, PPSV23 (Pneumovax) 01/30/2007 Pfizer Monovalent 12+ Purple Top 06/20/2020,02/08/2020 Td 03/13/1999 Td (7+ yrs) 11/11/2008 Tdap 06/08/2012 Typhoid (Vivotif, Oral) 03/13/1999 Zoster (Zostavax) 04/05/2006 Family History Medical History Relation Name Comments Cancer, Prostate Father Other Father bph High Blood Pressure Mother Osteoporosis Mother Psychiatry Mother Depression Cancer, Breast Maternal Grandmother High Blood Pressure Maternal Grandmother Relation Name Status Comments Father (Age 101) Mother Alive Born 1913 Brother Alive x 4 Child Alive x 2 Maternal Grandmother Sister Alive x1 Social History Tobacco Use Types Packs/Day Years Used Date Smoking Tobacco: Never Smokeless Tobacco: Never Alcohol Use Standard Drinks/Week Comments Yes 4.2 (1 standard drink = 0.6 oz p ure alcohol) Sex and Gender Information Value Date Recorded Sex Assigned at Not on file Legal Sex Male 6:44 AM CDT Gender Identity Not on file Sexual Orientation Not on file Last Filed Vital Signs Vital Sign Reading Time Taken Comments Blood Pressure 102/78 02/23/2013 9:43 AM CDT Pulse 72 02/23/2013 9:43 AM CDT Temperature 36.8 C (98.3 F) 01/24/2013 10:05 AM CDT Respiratory Rate 12 01/24/2013 10:0 5 AM CDT Oxygen Saturation 97% 01/11/2013 11: 33 AM CDT Inhaled Oxygen Concentration - - Weight 80.6 kg (177 lb 12.8 oz) 02/23/2013 9:43 AM CDT Height 182.9 cm (6') 01/24/2013 10:05 AM CDT Body Mass Index 24.11 01/24/2013 10:05 AM CDT Plan of Treatment Health Maintenance Due Date Last Done Comments HepA Vaccine (2 of 2 - Risk 2-dose series) 02/23/1998 08/23/1997 Medicare Annual Wellness Visit 01/24/2014 01/24/2013 RSV Vaccine (1 - 1-dose 75+ series) 2016 DTaP/Tdap/Td Vaccine (2 - Tdap) 06/08/2022 06/08/2012, 11/11/2008, 03/13/1999 COVID-19 Vaccine ( - season) 2024 06/20/2020, 05/30/2020 Influenza Vaccine (#1) 2025 0, 01/30/2019, 02/14/2018, Additional history exists Colonoscopy Discontinued 08/24/2007, 04/2007 (Completed) Pneumococcal Vaccine 50+ Yrs Completed 01/03/2015, 01/30/2007 Zoster/Shingles Vaccine Completed 01/05/20 18, 07/07/2017, 04/05/2006 HepB Vaccine Aged Out No longer eligi ble based on patient's age to complete this topic Hib Vaccine Aged Out No longer eligi ble based on patient's age to complete this topic IPV (Polio) Vaccine Aged Out No longe r eligible based on patient's age to complete this topic MCV4 Vaccine Aged Out No longer eligi ble based on patient's age to complete this topic Meningococcal B Vaccine Aged Out No l onger eligible based on patient's age to complete this topic Procedures Procedure Name Priority Date/Time Associated Diagnosis Comments COLONOSCOPY S 08/24/2007 12:00 AM CDT from Last 3 Months or Most Recently Relevant to Health Maintenance Results * COLONOSCOPY S (08/24/2007 12:00 AM CDT) Narrative Transcriptions Gumaro Oviedo MD - 08/24/2007 12:00 AM CDT us Gumaro Oviedo MD DUMMY/OTHER/AR Final Result from Last 3 Months or Most Recently Relevant to Health Maintenance Insurance MEDICARE AARP MEDICARE SUPPLEMENT MEDICARE [facility] MEDICARE SUPPLEMENT MEDICARE AARP MEDICARE SUPPLEMENT
--- OUTSIDE RECORDS SUMMARY | 2024-12-29 08:47 | XMS_ITS | Encounter Summary ---
Author Organization [employer] Address [address] [address] Care Team Providers Care Research Engineer Marine Equipment Name Role Phone Aakash Peraza MD Primary Care Provider [phone] Encounter Details Date Type Department Care Team (Late st Contact Info) Description 05/08/2012 Consent for Procedure/Treatme nt [facility] Same Day Surgery [address] [place] [address] [facility], Provider [facility] INFORMED CONSENT Social History Tobacco Use Types Packs/Day Years Used Date Smoking Tobacco: Never Smokeless Tobacco: Never Alcohol Use Standard Drinks/Week Comments Yes 4.2 (1 standard drink = 0.6 oz p ure alcohol) more than once per week Sex and Gender Information Value Date Recorded Sex Assigned at Not on file Legal Sex Male 6:44 AM CDT Gender Identity Not on file Sexual Orientation Not on file documented as of this encounter Progress Notes * [facility], Provider - 05/08/2012 12:00 AM CST LATION NOZZLEMAN documented in this encounter Plan of Treatment Not on file documented as of this encounter Visit Diagnoses Not on filedocumented in this encounter Care Teams Research Engineer Marine Equipment Relationship Specialty Start Date End Date Aakash Peraza MD [address] [place] [address] PCP - General Internal Medicine 09/06/11 09/04/19 documented as of this encounter
--- OUTSIDE RECORDS SUMMARY | 2024-12-29 08:47 | XMS_ITS | Encounter Summary ---
Author Organization [email or web address] Address [address] [place] [address] Care Team Providers Care Die Casting Machine Maintainer Name Role Phone Aakash Peraza MD Primary Care Provider [phone] Encounter Details Date Type Department Care Team (Late st Contact Info) Description 01/14/2012 Emergency Room External to External, [place] [address] [facility] Social History Tobacco Use Types Packs/Day Years [...] as of this encounter Progress Notes * External, Provider - 01/14/2012 12:00 AM CDT documented in this encounter Plan of Treatment Not on file documented as of this encounter Visit Diagnoses Not on filedocumented in this encounter Care Teams Die Casting Machine Maintainer Relationship Specialty Start Date End Date Aakash Peraza MD [address] [place] [address] PCP - General Internal Medicine 09/06/11 09/04/19 documented as of this encounter
[2024-12-29 09:00] VITALS: BP 147/78; PULSE 60; RESP 18; TEMP 36.3; O2SAT 99; BMI 22.4
--- NOTE | 2024-12-29 09:55 | ED.GENADULT ---
HPI - General Adult General Date Seen: 12/29/24 Chief complaint: Fall/Minor Trauma Stated complaint: fell - lower back pain Time Seen by Provider: 12/29/24 09:49 History of Present Illness HPI narrative: Pleasant 84-year-old gentleman presenting to the ER today for low back pain. He rolled out of bed and fell on the carpeted floor overnight last night. He was crawling into bed. He typically wears a eye shield keep the light from spilling in through his windows in the morning and waking him up. Last night he put his eye shield over his eyes before he crawled into bed. He misjudged disposition the bed and accidentally fell off the edge. He landed directly on his low back. Initially he felt 0 K. However this morning he now feels of pain in his buttocks and low back. It gets better when he walks. He rates at 2/10. He is pain is a mild pain low in the low back over the posterior sacrum. He is not having any pain in the lumbar spine. No pain radiating down his legs. No leg numbness or weakness. No abdominal pain. No headache or neck pain. He is confident he did not hit his head. No injury to his ribs. He did suffer a flap-like laceration to the dorsum of his left thumb MCP joint. Bleeding was controlled. He put a dressing on prior to arrival. Tetanus is up-to-date. He is on Plavix. He was not sure if he can take anything for the pain such as Tylenol or ibuprofen, so is not taking anything. He has a history of a TIA 2 years ago and is on Plavix for that. He also has a history of sleep apnea, spinal stenosis, arthritis, kidney stones. Related Data Home Medications ?Medication ?Instructions ?Recorded ?Confirmed acetaminophen 500 mg tablet 500 - 1,000 mg PO Q6H PRN 12/20/22 11/21/24 (Tylenol Extra Strength) cholecalciferol (vitamin D3) 25 25 mcg PO DAILY 12/20/22 11/21/24 mcg (1,000 unit) capsule melatonin 3 mg tablet 3 mg PO HS PRN 12/20/22 11/21/24 clopidogrel 75 mg tablet 75 mg PO DAILY 09/09/23 12/29/24 ketoconazole 2 % topical cream applic topical 09/09/23 11/21/24 valacyclovir 1 gram tablet 1,000 mg PO 3XD 12/29/24 12/29/24 Previous Rx's ?Medication ?Instructions ?Recorded mupirocin 2 % topical ointment 1 applic topical TID #15 grams 09/09/23 Allergies Allergy/AdvReac Type Severity Reaction Status Date / Time No Known Drug Allergies Allergy Verified 12/29/24 08:56 [facility] Medical History (Updated 12/29/24 @ 11:02 by Jose Marrero MD) Vertigo ?R42 - Dizziness and giddiness (ICD-10) Kidney stone ?N20.0 - Calculus of kidney (ICD-10) TIA (transient ischemic attack) ?G45.9 - Transient cerebral ischemic attack, unspecified (ICD-10) Sleep apnea ?G47.30 - Sleep apnea, unspecified (ICD-10) Spinal stenosis ?M48.00 - Spinal stenosis, site unspecified (ICD-10) Arthritis ?M19.90 - Unspecified osteoarthritis, unspecified site (ICD-10) Surgical History (Updated 12/20/22 @ 00:56 by Katalina Ramirez RN) H/O cataract extraction ?Z98.49 - Cataract extraction status, unspecified eye (ICD-10) History of removal of cyst ?Z98.890 - Other specified postprocedural states (ICD-10) Social History What is your current living situation?: I presently have a place to live Problems where you live: no known problems Problems where you live details: no problems In the past 12 months, utilities in danger of being shut off: no In past 12 months, lack of transportation kept you from medical appts, meetings, work, or getting things needed for daily living: no In the past 12 mos, have been you worried that your food would run out before you had money to buy more?: never true In the past 12 mos, the food you bought just didn't last and you didn't have money to buy more?: never true Highest level of school completed/degree received: Master's degree Smoking Status: Never smoker Second hand tobacco smoke exposure: No How often do you have a drink containing alcohol: monthly or less How often do you have six or more drinks on one occasion: Never AUDIT-C Alcohol total score: 1 Non-prescribed substance use: denies use Caffeine: Yes (Coffee Daily) How often does anyone, including family, friends and others, physically hurt you: never How often does anyone, including family, friends and others, insult or talk down to you: never How often does anyone, including family, friends and others, threaten you with harm: never How often does anyone, including family, friends and others, scream or curse at you: never service: No Exam Narrative: Exam Narrative: Primary Survey: A- patent. Speaking clearly. Phonation normal. No stridor. B- breathing easily. Lung sounds clear and equal. Oxygen saturation normal on room air C- no active bleeding. Blood pressure stable. Symmetric pulses and cap refill in 4 extremities. D- alert and oriented x3. GCS 15. No focal deficits. Constitutional: Appears well-developed and well-nourished. Alert. Conversant. Non toxic. HENT: Head: Atraumatic. Nose: Nose normal. Mouth/Throat: Oral mucosa is clear and moist. no trismus. Pharynx normal. Tonsils symmetric. No tonsillar enlargement, erythema, or exudate. Eyes: Conjunctivae normal. EOM normal. Pupils equal, round, and reactive to light. No scleral icterus. Neck: Normal range of motion. Neck supple. No tracheal deviation present. Cardiovascular: Normal rate, regular rhythm. No gallop. No friction rub. No murmur heard. Symmetric radial artery pulses Pulmonary/Chest: Effort normal. No stridor. No respiratory distress. No wheezes. No rales. No rhonchi . No tenderness. Abdominal: Soft. Bowel sounds normal. No distension. No mass. No tenderness. No rebound. No guarding. Musculoskeletal: No T or L-spine tenderness or step-off. He is mildly tender over the posterior sacrum in the back of his pelvis. No bruising, redness. No crepitus. Pelvis is stable. RUE: Normal range of motion. No tenderness. No deformity LUE: Normal range of motion. No tenderness. No deformity RLE: Normal range of motion. No edema. No tenderness. No deformity LLE: Normal range of motion. No edema. No tenderness. No deformity Neurological: Alert and oriented to person, place, and time. Normal strength. CN II-VII intact. No sensory deficit. GCS eye subscore is 4. GCS verbal subscore is 5. GCS motor subscore is 6. Normal coordination Skin: He does have multiple red scabby scaly lesions with roughly 3 cm 1 on the left side of his mid back. He says he was recently (few weeks ago) diagnosed with zoster and now the lesions are healing. That is not painful or new. Skin is warm and dry. No rash noted. No pallor. Normal capillary refill. Psychiatric: Normal mood. Normal affect. Const: Vital Signs, click to edit/add: Vital Signs - 24 hr 12/29/24 09:00 12/29/24 11:07 Temperature 97.3 F L Pulse Rate [Pulse Oximeter] 60 56 L Respiratory Rate 18 16 Blood Pressure [Ri t Upper Arm] 147/78 H 119/78 Pulse Oximetry 99 95 Oxygen Delivery Me thod Room Air Room Air Course Vital Signs Vital signs: Initial Vital Signs Temperature 97.3 F L 12/29/24 09:00 Temperature Source Temporal Artery Scan 12/29/24 09:00 Pulse Rate 60 12/29/24 09:00 Respiratory Rate 18 12/29/24 09:00 Blood Pressure 147/78 H 12/29/24 09:00 Blood Pressure Mean 101 12/29/24 09:00 Pulse Oximetry 99 12/29/24 09:00 Oxygen Delivery Method Room Air 12/29/24 09:00 Vital Signs Temperature 97.3 F L 12/29/24 09:00 Pulse Rate 60 12/29/24 09:00 Respiratory Rate 18 12/29/24 09:00 Blood Pressure 147/78 H 12/29/24 09:00 Pulse Oximetry 99 12/29/24 09:00 Oxygen Delivery Method Room Air 12/29/24 09:00 Temperature 97.3 F L 12/29/24 09:00 Pulse Rate 56 L 12/29/24 11:07 Respiratory Rate 16 12/29/24 11:07 Blood Pressure 119/78 12/29/24 11:07 Pulse Oximetry 95 12/29/24 11:07 Oxygen Delivery Method Room Air 12/29/24 11:07 Medical Decision Making MDM Narrative Medical decision making narrative: Very pleasant 84-year-old gentleman presenting to the ER today for evaluation of injuries after he had an accidental fall out of bed last night. His primary area of pain is that he has a 2/10 pain in his posterior sacrum/back of his pelvis. After discussion options for workup and imaging, patient would like to get a CT scan which I think is reasonable. It does give a sensitivity above plain films to look for subtle sacral or pelvic fractures. He is not having any pain in his lumbar spine to raise concern for L-spine fracture. He is not having any symptoms of lumbar radiculopathy, acute spinal cord injury. CT pelvis is obtained and is negative for any acute fracture or dislocation but does show signs of some chronic stress fractures. These were not previously known to the patient. Discussed with him. Recommend follow-up with his PCP to re-evaluate. With the potential for pelvic stress fractures, PCP may also want to do further evaluation for osteoporosis. None of these lesions look like pathologic fractures. He is not having any abdominal pain or other symptoms to raise concern for intrapelvic or intra-abdominal bleeding. He also has an uncomplicated laceration creating a small flap of tissue on the dorsum of his left thumb MCP joint. This was repaired as noted above. There is no evidence at this time to suggest any associated fracture or foreign body. There is no evidence to suggest tendon or arterial injury and patient is neurologically in tact. The patient is to follow up for suture removal as instructed in 10 days. Indications to seek urgent reevaluation and signs of infection (including but not limited to increasing pain, redness, swelling, fevers, and drainage) were reviewed. Tetanus is up-to-date. This is a clean and non-contaminated wound in which prophylactic antibiotics are not indicated. An understanding of the discharge instructions and need for follow up were verbally confirmed. Imaging Data CT scan - pelvis: Attestation: I have reviewed the pertinent imaging results. Radiologist's impression: IMPRESSION: 1. No acute fracture. 2. 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 Changes suggesting chronic insufficiency or stress type fracturing in the right periarticular ilium and left sacral ala. 3. Moderate lumbar degenerative disc disease. Discharge Plan Discharge Clinical Impression: Laceration of left thumb, Pain in sacrum, Fracture, stress, pelvis Patient Disposition: Home, Self-Care Condition: Stable Instructions: Finger Laceration (ED) Additional Instructions: As we discussed, for the laceration on from, please keep the dressing in place and keep the wound clean and dry save for antibiotic ointment. It is okay to take the dressing off once per day and wash gently with warm water on warm gauze. After the wound is clean, let it dry and then reapply antibiotic ointment and dressing. Watch the area for signs of infection such as redness, swelling, or pus draining from the wound. If you have any concerns, please see your doctor or come back to the ER immediately. Otherwise if the wound is healing okay, you can recheck with your regular doctor in about 7-10 days for suture removal. The CT scan of her pelvis does not show any acute broken bones or serious injuries from her fall. It does show signs that you have had previous stress fractures in your pelvic bones. These appear to be healing. The stress fractures do not require any surgery or immediate treatment. It is okay to use Tylenol if needed for your pelvic pain. You can do normal activities. Avoid strenuous or dangerous activities that might be due to fall from height (for example, do not climb up on ladders). Please recheck with your regular doctor in 10 days when you have your sutures removed. You can discussed CT findings with them. Prescriptions: No Action clopidogrel 75 mg tablet 75 mg PO DAILY ketoconazole 2 % cream topical mupirocin 2 % ointment 1 applic topical TID Qty: 15 0RF melatonin 3 mg tablet 3 mg PO HS PRN acetaminophen [Tylenol Extra Strength] 500 mg tablet 500 - 1,000 mg PO Q6H PRN cholecalciferol (vitamin D3) 25 mcg (1,000 unit) capsule 25 mcg PO DAILY valacyclovir 1 gram tablet 1,000 mg PO 3XD Follow Up/Referrals: Eleuterio Young MD [Primary Care Provider, Family Practice] Stand Alone Forms: [facility] Info Instructions Procedures Laceration Left thumb laceration: Verification/time out: correct patient and correct procedure Site: hand (Left thumb-1.5 cm L-shaped laceration creating a flap of tissue on the dorsum of the MCP joint.) Side (If applicable): left Size (cm): 1.5 Description: flap Depth: simple, single layer Local Anesthetic: lidocaine 1% Amount of anesthesia used (mL): 3 Pre-repair: wound explored, irrigated extensively and deep structures intact Skin layer closed with: nylon Size (cm): 5-0 Number of sutures: 4 Technique: simple, interrupted
--- NOTE | 2024-12-29 10:08 | CRLHL7_ITS ---
For Patients: As a result of the Century Cures Act, medical imaging exams and procedure reports are released immediately into your electronic medical record. You may view this report before your referring provider. If you have questions, please contact your health care provider. INDICATION: Pain after fall. TECHNIQUE: Multidetector noncontrast images bony pelvis. Axial, coronal and sagittal reformats. FINDINGS: Moderate disc height loss and vacuum disc L4-5 and L5-S1. Relatively minor facet arthrosis. Anatomic lumbosacral alignment. Moderate osteoarthritis sacroiliac joints. Patchy sclerosis surrounded indistinct vertical lucency at the right periarticular ileum inferior SI joint margin. Similar appearance left sacral ala roughly S2 level through S3. Small amount of air lucency in the fracture and in the periarticular soft tissues at the ventral margin (image 158 series 3) no acute fracture. Moderate osteoarthritis of both hips which are anatomically aligned. Mild osteoarthritis and symphysis pubis. No mass, fluid or adenopathy in the pelvis or groin. Mild prostatomegaly. IMPRESSION: 1. No acute fracture. 2. 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 Changes suggesting chronic insufficiency or stress type fracturing in the right periarticular ilium and left sacral ala. 3. Moderate lumbar degenerative disc disease. Please note that all CT scans at this facility use dose modulation, iterative reconstruction, and/or weight-based dosing when appropriate to reduce radiation dose to as low as reasonably achievable. Dictated by Segun Naidu MD @ 12/29/2024 10:48:44 AM (Electronically Signed)
[2024-12-29 11:07] VITALS: BP 119/78; PULSE 56; RESP 16; O2SAT 95
== END 2024-12-29 11:38 | disposition home or self-care (01) ==
PROVIDERS: Emergency Provider Emergency Medicine; PCP Family Medicine
DX: S61.012A Laceration without foreign body of left thumb without damage to nail, initial encounter (principal); M53.3 Sacrococcygeal disorders, not elsewhere classified; M84.350A Stress fracture, pelvis, initial encounter for fracture; W06.XXXA Fall from bed, initial encounter; Z79.899 Other long term (current) drug therapy
CPT/HCPCS: 12001; 72192; 99283; 99284